=== PATIENT | male | born 1970 | race Caucasian/White ===

== ENCOUNTER 2016-07-28 11:17 | Emergency (ER) | payer OTHER ==
[~2016-07-28] VITALS: Ht 175.3 cm; Wt 99.8 kg
[2016-07-28 11:21] VITALS: BP 122/82
[2016-07-28] MEDS ORDERED: GUAIFENESIN/D-METHORPHAN HB 5 ML UDC PO ONE (11:30)
[2016-07-28] MEDS ORDERED: IBUPROFEN 400 MG TABLET PO ONE (11:30)
[2016-07-28] MEDS ORDERED: IBUPROFEN 400 MG TABLET ONE (11:33)
[2016-07-28] MEDS ORDERED: GUAIFENESIN/D-METHORPHAN HB 5 ML UDC ONE (11:34)
== END 2016-07-28 11:38 | disposition home or self-care (01) ==
LOC: ER 11:20
DX: J02.9 Acute pharyngitis, unspecified (principal); J06.9 Acute upper respiratory infection, unspecified
CPT/HCPCS: 99283; A4606; Z7610

== ENCOUNTER 2023-03-12 05:21 | Emergency (ER) | payer OTHER ==
[~2023-03-12] VITALS: Ht 175.3 cm; Wt 2.5 kg
[2023-03-12 08:42] VITALS: BP 141/99; TEMP 97.8; O2SAT 97
== END 2023-03-12 08:30 | disposition home or self-care (01) ==
LOC: ER 05:24
DX: R06.02 Shortness of breath (principal)
CPT/HCPCS: 71045-TC

== ENCOUNTER 2024-10-26 18:24 | Emergency (ER) | payer OTHER ==
[~2024-10-26] VITALS: Ht 172.7 cm; Wt 99.8 kg
[2024-10-26] MEDS ORDERED: MAG HYDROX/AL HYDROX/SIMETH 30 ML UDC ONE (18:58)
[2024-10-26 18:59] LABS: BASOPHILS # (AUTO) 0.1 K/uL (0.0-0.2); BASOPHILS % (AUTO) 1.1 % (0.0-2.0); EOSINOPHILS # (AUTO) 0.3 K/uL (0.0-0.7); EOSINOPHILS % (AUTO) 4.3 % (0.0-6.0); HEMATOCRIT 46 % (39-51); HEMOGLOBIN 15.7 g/dL (13.5-17.5); LYMPHOCYTES % (AUTO) 30.3 % (20.0-44.0); MEAN CORPUSCULAR HEMOGLOBIN 31 PG (26.0-33.0); MEAN CORPUSCULAR HGB CONC 34 g/dl (31.0-36.0); MEAN CORPUSCULAR VOLUME 91 fL (80-96); MONOCYTES # (AUTO) 0.5 K/uL (0.1-1.30); NEUTROPHILS # (AUTO) 3.7 K/uL (1.8-8.9); NEUTROPHILS % (AUTO) 56.3 % (43.0-81.0); PLATELET COUNT (AUTO) 270 K/uL (150-450); RED BLOOD CELL COUNT(AUTO) 5.09 MIL/uL (4.5-6.0); RED CELL DISTRIBUTION WIDTH 13.7 % (11.5-15.0); WHITE BLOOD COUNT (AUTO) 6.7 K/uL (4.3-11.0)
[2024-10-26] MEDS ORDERED: LIDOCAINE VISCOUS 2% UD 15 ML UDC ONE (18:59)
[2024-10-26] MEDS: MAG HYDROX/AL HYDROX/SIMETH 30 ML UDC PO ONE (19:06)
[2024-10-26] MEDS: LIDOCAINE VISCOUS 2% UD 15 ML UDC MM ONE (19:06)
[2024-10-26 19:10] LABS: CALCIUM, SERUM 8.9 mg/dL (8.5-10.1); POTASSIUM 3.9 mmol/L (3.5-5.1)
[2024-10-26] MEDS ORDERED: IV NS 0.9% 250 ML IV ONE (19:32)
[2024-10-26] MEDS ORDERED: IOHEXOL-300 100 ML VIAL IV ONE (19:32)
[2024-10-26] MEDS ORDERED: CT SWABBABLE VALVE TRANS SET 1 EA INFUS.SET MC ONE (19:32)
[2024-10-26 21:24] VITALS: BP 139/96; TEMP 98; O2SAT 98
== END 2024-10-26 21:25 | disposition home or self-care (01) ==
LOC: ER 18:24
DX: R09.A2 Foreign body sensation, throat (principal); T17.208A Unspecified foreign body in pharynx causing other injury, initial encounter; I10 Essential (primary) hypertension; Z60.2 Problems related to living alone; W44.F9XA Other object of natural or organic material, entering into or through a natural orifice, initial encounter; Y93.89 Activity, other specified; Y92.89 Other specified places as the place of occurrence of the external cause; Y99.8 Other external cause status
CPT/HCPCS: 99285; 70491; 71045; 85025; 80048; 36415; J7050; Q9967